=== PATIENT | female | born 1965 | race African-American/Black ===

== ENCOUNTER 2018-06-12 09:09 | Emergency (ER) | payer SELFPAY ==
[~2018-06-12] VITALS: Ht 170.2 cm; Wt 127.0 kg
[2018-06-12] MEDS ORDERED: fentaNYL PF VIAL 100 MCG/2 ML VIAL IM ONE (09:30)
[2018-06-12] MEDS ORDERED: CYCLOBENZAPRINE 10 MG TABLET. PO ONE (09:30)
--- NOTE | 2018-06-12 09:41 | PHYS DOC ---
Past Medical History Past Medical History: No Pertinent History Past Surgical History: Other Additional Past Surgical Histo: LT ankle Alcohol Use: None Drug Use: None Adult General Chief Complaint Chief Complaint: MARIA EUGENIALER HPI HPI 52-year-old female presenting to the emergency department today with left shoulder pain. She denies any trauma to the shoulder recently. 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 She has pain similar to her previous tendinitis. She was working when her pain started. She describes a throbbing sensation in her left shoulder is nonradiating intermittent. She has taken ibuprofen with mild relief. She denies chest pain or shortness of breath. Past medical history: None Past surgical history: None Social history: Denies smoking drinking or IV drug abuse Review of systems is negative for chest pain shortness of breath nausea vomiting diaphoresis. She denies abdominal pain fevers or chills. All other review of systems is negative unless otherwise noted in history of present illness. ED course: 52-year-old female presenting with left shoulder pain. X-rays and EKG along with blood tests ordered. Patient was given intramuscular fentanyl and oral Flexeril. We will place the patient a sling. X-ray shows mild subluxation of left shoulder. I spoke with Dr. Ghosh. I will refer the patient to him for possible outpatient MRI. EKG and troponin is negative.The patient has been examined and was not found to have an emergency medical condition. The patient was then discharged home in stable condition to follow up with their primary care physician over the next 2-3 days. They were to return if their symptoms worsened or if they were concerned for any reason. They were also instructed to return to the emergency department if they were unable to get the recommended and appropriate follow-up. [id number] discharge instructions and return precautions were given. Patient's questions were answered to their satisfaction. Patient is comfortable with plan. Review of Systems Review of Systems SEE ABOVE. Current Medications Current Medications Current Medications Medications (Trade) Dose Ordered Sig/[place] Start Time Stop Time Status Last Admin Dose Admin Cyclobenzaprine HCl (Flexeril) 10 mg 1X ONCE 06/12/18 09:30 06/12/18 09:31 DC 06/12/18 09:49 10 MG Fentanyl Citrate (Fentanyl 2ml Vial) 50 mcg 1X ONCE 06/12/18 09:30 06/12/18 09:31 DC 06/12/18 09:49 50 MCG Allergies Allergies Allergies Coded Allergies Type Severity Reaction Last Updated Verified erythromycin base Allergy Severe 04/19/14 No Physical Exam Physical Exam SEE ABOVE Constitutional: Well developed, well nourished, no acute distress, non-toxic appearance. [] HENT: Normocephalic, atraumatic, bilateral external ears normal, oropharynx moist, no oral exudates, nose normal. [] Eyes: PERRLA, EOMI, conjunctiva normal, no discharge. [] Neck: Normal range of motion, no tenderness, supple, no stridor. [] Cardiovascular:Heart rate regular rhythm, no murmur [] Lungs & Thorax: Bilateral breath sounds clear to auscultation [] Abdomen: Bowel sounds normal, soft, no tenderness, no masses, no pulsatile masses. [] Skin: Warm, dry, no erythema, no rash. [] Back: No tenderness, no CVA tenderness. [] Extremities: Left shoulder is atraumatic on examination. No deformities. No abrasions lacerations or ecchymosis. Neurovascularly intact distally. Mild tenderness palpation along the left shoulder with range of motion. Nontender elbow. Nontender wrist. Nontender clavicle. Neurologic: Alert and oriented X 3, normal motor function, normal sensory function, no focal deficits noted. [] Psychologic: Affect normal, judgement normal, mood normal. [] Current Patient Data Vital Signs Vital Signs Date Time Temp Pulse Resp B/P (MAP) Pulse Ox O2 Delivery O2 Flow Rate FiO2 06/12/18 09:49 18 97 Room Air 06/12/18 09:17 98.0 86 191/110 (137) 98.0 Lab Values Laboratory Tests Test 06/12/18 09:40 White Blood Count 9.0 x10^3/uL (4.0-11.0) Red Blood Count 4.16 x10^6/uL (3.50-5.40) Hemoglobin 12.3 g/dL (12.0-15.5) Hematocrit 35.9 % (36.0-47.0) L Mean Corpuscular Volume 86 fL (79-100) Mean Corpuscular Hemoglobin 29 pg (25-35) Mean Corpuscular Hemoglobin Concent 34 g/dL (31-37) Red Cell Distribution Width 14.3 % (11.5-14.5) Platelet Count 395 x10^3/uL (140-400) Neutrophils (%) (Auto) 65 % (31-73) Lymphocytes (%) (Auto) 25 % (24-48) Monocytes (%) (Auto) 7 % (0-9) Eosinophils (%) (Auto) 2 % (0-3) Basophils (%) (Auto) 1 % (0-3) Neutrophils # (Auto) 5.9 x10^3uL (1.8-7.7) Lymphocytes # (Auto) 2.3 x10^3/uL (1.0-4.8) Monocytes # (Auto) 0.7 x10^3/uL (0.0-1.1) Eosinophils # (Auto) 0.1 x10^3/uL (0.0-0.7) Basophils # (Auto) 0.0 x10^3/uL (0.0-0.2) Sodium Level 138 mmol/L (136-145) Potassium Level 4.0 mmol/L (3.5-5.1) Chloride Level 103 mmol/L (98-107) Carbon Dioxide Level 27 mmol/L (21-32) Anion Gap 8 (6-14) Blood Urea Nitrogen 10 mg/dL (7-20) Creatinine 0.7 mg/dL (0.6-1.0) Estimated GFR (Cockcroft-Gault) 107.2 BUN/Creatinine Ratio 14 (6-20) Glucose Level 118 mg/dL (70-99) H Calcium Level 9.6 mg/dL (8.5-10.1) Total Bilirubin 0.5 mg/dL (0.2-1.0) Aspartate Amino Transferase (AST) 12 U/L (15-37) L Alanine Aminotransferase (ALT) 19 U/L (14-59) Alkaline Phosphatase 100 U/L (46-116) Troponin I Quantitative < 0.017 ng/mL (0.000-0.055) Total Protein 7.9 g/dL (6.4-8.2) Albumin 3.5 g/dL (3.4-5.0) Albumin/Globulin Ratio 0.8 (1.0-1.7) L Lipase 69 U/L (73-393) L Laboratory Tests 06/12/18 09:40 Laboratory Tests 06/12/18 09:40 EKG EKG [] Radiology/Procedures Radiology/Procedures [] Course & Med Decision Making Course & Med Decision Making Pertinent Labs and Imaging studies reviewed. (See chart for details) [] Dragon Disclaimer Dragon Disclaimer This electronic medical record was generated, in whole or in part, using a voice recognition dictation system. Departure Departure Impression: Primary Impression: Shoulder pain Disposition: HOME, SELF-CARE Condition: STABLE Referrals: NON,STAFF (PCP) Patient Instructions: Shoulder Pain, [id number] Additional Instructions: Thank you for allowing us to participate in your care today. Return to the emergency department you have any new or worsening symptoms, or if you are concerned for any reason. Return to emergency department if you have any new or concerning symptoms including but not limited to fever, chills, nausea, vomiting, intractable pain, any new rashes, chest pain, shortness of air , uncontrolled bleeding, difficulty breathing, and/or vision loss. Follow up with your primary care physician within 3 days. Call your Primary Doctor tomorrow and inform them of your visit today. If you do not have a primary care provider we are happy to provide you with a list of our primary care providers contact information. This condition should be evaluated by your primary care physician and any recommended consulting services for continued management within 2-3 days after discharge. If at any time, you are having difficulty getting into your primary care doctor or a specialist, return to the emergency department. Scripts Cyclobenzaprine Hcl (CYCLOBENZAPRINE HCL) 5 Mg Tablet 1 TAB PO QHS, #3 TAB Prov: NIMCO DEL VALLE MD 06/12/18 NIMCO DEL VALLE MD Jun 12, 2018 09:41
[2018-06-12 09:55] LABS: BASO % 1 % (0-3); EOS # 0.1 x10^3/uL (0.0-0.7); EOS % 2 % (0-3); HEMATOCRIT 35.9 % (36.0-47.0); HEMOGLOBIN 12.3 g/dL (12.0-15.5); LYMPH # 2.3 x10^3/uL (1.0-4.8); LYMPH % 25 % (24-48); MEAN CORPUSCULAR HEMOGLOBIN 29 pg (25-35); MEAN CORPUSCULAR HGB CONC 34 g/dL (31-37); MEAN CORPUSCULAR VOLUME 86 fL (79-100); MONO # 0.7 x10^3/uL (0.0-1.1); MONO % 7 % (0-9); NEUT # 5.9 x10^3uL (1.8-7.7); NEUT % 65 % (31-73); PLATELET COUNT 395 x10^3/uL (140-400); RED BLOOD COUNT 4.16 x10^6/uL (3.50-5.40); RED CELL DISTRIBUTION WIDTH 14.3 % (11.5-14.5)
--- NOTE | 2018-06-12 10:00 | RAD ---
SHOULDER 2+V LEFT History: Left shoulder pain Comparison: None. Findings: 3 views of the left shoulder are submitted. There is likely calcific tendinosis. No acute fracture is identified. Humeral head appears somewhat inferiorly subluxed. Impression: 1. Humeral head appears somewhat inferiorly subluxed. There is calcific tendinosis. Electronically signed by: Yusuf Alexander MD (06/12/2018 9:56 AM) [id number]
[2018-06-12 10:09] LABS: CALCIUM 9.6 mg/dL (8.5-10.1); CREATININE 0.7 mg/dL (0.6-1.0); GFR 107.2
[2018-06-12 10:15] LABS: ALBUMIN 3.5 g/dL (3.4-5.0); ALBUMIN/GLOBULIN RATIO 0.8 (1.0-1.7); TOTAL BILIRUBIN 0.5 mg/dL (0.2-1.0); TOTAL PROTEIN 7.9 g/dL (6.4-8.2)
[2018-06-12 10:34] VITALS: BP 165/87
[2018-06-12] MEDS ORDERED: CYCL5TAB PO (10:36)
--- NOTE | 2018-06-13 06:18 | EKG ---
[facility] [address] [place] [address] Test Date: 2018-06-12 Test Time: 09:37:33 Pat Name: ZULY AMAYA Department: Room: Gender: F Gis Scientist: : [id number] Requested By: NIMCO DEL VALLE Order Number: [id number] Reading MD: Measurements Intervals [place] Rate: 92 P: -4 WA: 140 QRS: 31 QRSD: 70 T: 19 QT: 358 QTc: 448 Interpretive Statements SINUS RHYTHM QRS(T) CONTOUR ABNORMALITY CONSIDER INFERIOR MYOCARDIAL DAMAGE POSSIBLY ABNORMAL ECG RI6.01 No previous ECG available for comparison
== END 2018-06-12 10:50 | disposition home or self-care (01) ==
LOC: ER 09:09
DX: M25.512 Pain in left shoulder (principal); Z88.1 Allergy status to other antibiotic agents
CPT/HCPCS: 36415; 73030; 80053; 83690; 84484; 85025; 93005; 96372; 99285; J3010